=== PATIENT | female | born 1995 | race Caucasian/White ===

== ENCOUNTER → 2023-01-20 | Outpatient (CLI) | payer OTHER | LOC: DIA.ED 07:47 | DX: O24.419 Gestational diabetes mellitus in pregnancy, unspecified control (principal) | CPT/HCPCS: G0108 ==

== ENCOUNTER → 2023-01-24 | Outpatient (CLI) | payer OTHER | LOC: DIA.ED 07:54 | DX: O24.419 Gestational diabetes mellitus in pregnancy, unspecified control (principal) ==

== ENCOUNTER 2023-03-22 00:02 | Inpatient (IN) | payer OTHER ==
[2023-03-22] VITALS (40 sets, daily range): BP systolic 89–155; BP diastolic 50–90; PULSE 71–137; TEMP 97.8–99.5
[~2023-03-22] VITALS: Ht 157.5 cm; Wt 104.1 kg
--- NOTE | 2023-03-22 00:05 | NUR ---
ambulatory to unit for assessment of ?SROM, accompanied by spouse. Pt reports "My water broke" Pt states "I really feel like I have to poop" SVE /-3, +amniotrace, pooling clear fluid. Up to bathroom.
--- NOTE | 2023-03-22 00:40 | NUR ---
pt on monitor. Pt anxious, shaking. states "i'm really scared" Discussed fears concerns. Discussed Labor routine, things to expect, things that would happen if she had a C-sect. supportive @ bedside.
--- NOTE | 2023-03-22 01:30 | NUR ---
IV started, up to bathroom. Continues anxious, tense.
[2023-03-22 01:48] LABS: BASO # 0.1 K/mm3 (0.0-0.2); BASO % 0.4 % (0.0-2.0); EOS # 0.1 K/mm3 (0.0-0.7); EOS % 0.8 % (0.0-4.0); GRAN # 9.9 K/mm3 (1.4-6.5); GRAN % 72.3 % (42.2-75.2); HEMATOCRIT 37.9 % (37.0-47.0); HEMOGLOBIN 12.8 g/dl (12.5-16.0); LYMPH # 2.6 K/mm3 (1.2-3.4); LYMPH % 18.7 % (20.0-51.0); MEAN CELL VOLUME 85 fl (80.0-100.0); MEAN CORPUSCULAR HEMOGLOBIN 29 pg (27-31); MEAN CORPUSCULAR HGB CONC 34 g/dl (33.0-37.0); MEAN PLATELET VOLUME 10.5 fl (7.4-10.4); MONO % 6.9 % (1.7-9.3); PLATELET COUNT 218 K/mm3 (130-400); RED BLOOD COUNT 4.46 M/mm3 (4.10-5.30); REDCELL DISTRIBUTION WIDTH-CV 14.1 % (11.5-14.5)
--- NOTE | 2023-03-22 02:15 | NUR ---
Pt continues tense/ anxious Stating"I just don't like how I feel. I'm nauseated." Dr Mantilla on unit. Diffiult to maintain FHR tracing r/t obesity, pt ansiety and frequest changing positions. This RN @ bedside adjusting monitors as pt changes positions. Encourage pt to attempt to stay still for FHR monitoring.
--- NOTE | 2023-03-22 02:25 | NUR ---
Pt changing position frequently, shaking with anxiety. Difficult to maintain FHR tracing. This RN at pt's bedside, attempting to maintain tracing and provide emotional support.
--- NOTE | 2023-03-22 03:15 | NUR ---
Continues anxious/tense moving positions frequently. Difficult to maintain FHR tracing r/t obesity and frequent position changes.
--- NOTE | 2023-03-22 03:20 | NUR ---
up to birthing cheryl, FHT's obtained
--- NOTE | 2023-03-22 03:50 | NUR ---
up to bathroom.
--- NOTE | 2023-03-22 04:00 | NUR ---
difficult to maintain FHR tracing. Dr Hobbs on unit, 0411 Dr HOBBS on unit, FSE placed.
--- NOTE | 2023-03-22 04:15 | NUR ---
up to birthing ball. 0430 Crying, shaking, on birthing ball. Epidural offered. PT crying, anxious "I'm scared. Is it too soon. I'm afraid I'll panic worse if i can't feel or move my legs" Reviewed epidural, side effects, how they are managed. Pt agrees to epidural. 0432 Anesthesia notified of request for epidural. Lr to bolus rate.
--- NOTE | 2023-03-22 04:41 | NUR ---
Back to bed for epid placement. Pt tense anxioux crying. Sits on edge of bed.see amesthesia record.
--- NOTE | 2023-03-22 05:10 | NUR ---
BP 89/52. lr TO BOLUS, EPHEDRINE 10mg IV push, pt continues anxious now stating "I don't feel very well, nauseated"
--- NOTE | 2023-03-22 05:20 | NUR ---
Pt in high fowlers , states "I feel better in this position" BP 118/61. FHT's 170's. 0526 After much encouragement, pt agrees to HOB down to 45 degrees.
--- NOTE | 2023-03-22 05:30 | NUR ---
Pt staring to relzx. States "I;m rally upset right now because my Mom isn't here.
--- NOTE | 2023-03-22 05:50 | NUR ---
Pt more relaxed states "I'm really upset because my Mom isn't here." Emotional support provided. To LL with peanut ball. Encouraged pt to close her eyes and rest. Lights turned down.
--- NOTE | 2023-03-22 06:00 | NUR ---
Pt resting with eyes closed. Monitor not tracing contractions. This RN palpates ctx from [id number]. FHT's with deceleration to 130with peak of palpated contraction, returns to baseline by palpated end of contraction. RN leaves room.
--- NOTE | 2023-03-22 06:05 | NUR ---
To supine for tinoco placement. PT relaxed and social, tolerates catheter placement well. Had instructed pt about tinoco placement after epidural placement. SVE as noted. To RL with peanut ball. 0616 FHT's with early deceleration to 110's. pt becomes anxious and nauseated. 0625 Ephedrine 10mg IV push. Bedside report and introductions with oncoming RN.
--- NOTE | 2023-03-22 06:25 | NUR ---
ePHEDRINE 10MG iv PUSH.
--- NOTE | 2023-03-22 11:45 | NUR ---
PATIENT CALLS OUT WITH COMPLAINTS OF PRESSURE. SVE 10/100/0 AT 1040. PRACTICE PUSH WITH PATIENT REVEALED . PATIENT INSTRUCTED TO STOP PUSHING AND TO BREATH THROUGH THE CTX. DR HOBBS CALLED AND UPDATED AT 1042. DR HOBBS HERE AT 1110 AND PUSHING WITH PATIENT AT 1115. PATIENT PUSHING WELL WITH BABY DESCENT. BABY DELIVERED AT 1121. A LIVE FEMALE . CORD WAS CUT AT 1125 BY FOB. PLACENTA DELIVERED AT 1131 SPONTANESOULY. 1ST DEGREE PERINEAL AND LEFT LABIAL REPARIED. PATIENT TOLERATED WELL. PISTOCIN BOLUS INFUSING AFTER DELIVERY OF PLACENTA AND BLEEDING WNL. EBL OF [address] HOBBS. PATIENT CLEANED UP AND RECOVERY START TIME 1145. WILL CONTINUE TO MONITOR.
--- NOTE | 2023-03-22 13:47 | NUR ---
RECOVERY COMPLETE BUT PATIENTS RIGHT LEG EXTREMELY NUMB AND PT CANNOT MOVE IT. WILL LET LEG REST AND WILL CONTINUE TO MONITOR.
--- NOTE | 2023-03-22 18:35 | NUR ---
Report recieved. Resting in bed. Moving right leg up and down in the bed. Able to hold the leg off the bed. Reports that she is unable to ambulate due to her leg feeling "tingly." Updated whiteboard and reviewed POC.
--- NOTE | 2023-03-22 19:25 | NUR ---
Stood at bedside while holding onto a nurses arm. Able to lift and move right leg. States it is too numb to ambulate. Fresh ice pack to perineum and tucks pads in place. VS and assessment completed. Able to position herself in bed.
--- NOTE | 2023-03-22 21:30 | NUR ---
Stood at bedside, immediately upon standing patient stated, "this doesn't feel right" and sat back down on the bed. Requested to be "wheeled" to the restroom to void. Able to lift both feet and step up onto [employer]. Was taken to the restroom where she voided 250mls. States she is unable to lift right foot to remove under garment to replace with a clean on. This nurse lifted her right leg and put on a clean pair of underwear, fresh ice pack and tucks pads. Able to then place both feet, unassisted, onto [employer] Steady. Was taken back to bed. Repositioned back in bed without assistance. Encouraged to continue to move the right leg to encourage circulation.
--- NOTE | 2023-03-22 23:30 | NUR ---
Going to breastfeed. Requests to hold motrin and tylenol until after she breastfeeds.
[2023-03-23 02:00] VITALS: BP 115/68; PULSE 89; TEMP 98
--- NOTE | 2023-03-23 05:05 | NUR ---
Called for assistance to restroom at this time. Reported her "feeling is back down to my foot but I cannot feel the bottom of my foot." Stood at the side of the bed well. Able to take steps in place next to bed then states, "this freaks me out. I can't do this." Used Enedina Medina to go to the restroom.
[2023-03-23 08:30] VITALS: BP 106/73; PULSE 89; TEMP 98
[2023-03-23] MEDS ORDERED: IBU600 MG PO (09:15)
--- NOTE | 2023-03-23 09:45 | NUR ---
Initial visit: Parents thanked Whiskey Proof Reader for offering congratulations and God's blessings for the of their daughter. Whiskey Proof Reader thanked family for choosing [facility].
--- NOTE | 2023-03-23 10:30 | NUR ---
1030 - Patient reports decreased feeling in right foot overnight and continues to report this feeling this morning. Patient ambulates with walker and RN to bathroom, voids and performs pericare. Patient steady with walker. 1040 - Patient walks 1 lap around unit with this RN using walker intermittently. Patient continues using walker in room. Care ongoing.
[2023-03-23 12:26] VITALS: BP 108/88; PULSE 88; TEMP 97.9
[2023-03-23 16:33] VITALS: BP 109/55; PULSE 72; TEMP 98.6
[2023-03-23 20:32] VITALS: BP 114/52; PULSE 67; TEMP 98.2
[2023-03-24 06:45] VITALS: BP 112/78; PULSE 70; TEMP 97.5
== END 2023-03-24 11:25 | disposition home or self-care (01) | DRG 807 ==
LOC: LDRO 00:02 → OB 00:58 → LDR 00:58 → OB 13:30
PROVIDERS: ADMIT Obstetrics & Gynecology
PROC: 10E0XZZ Delivery of Products of Conception, External Approach (ICD-10-PCS; principal; 2023-03-22)
PROC: 0HQ9XZZ Repair Perineum Skin, External Approach (ICD-10-PCS; 2023-03-22)
PROC: 0UQMXZZ Repair Vulva, External Approach (ICD-10-PCS; 2023-03-22)
DX: O24.420 Gestational diabetes mellitus in childbirth, diet controlled (principal); Z37.0 Single live birth; Z3A.38 38 weeks gestation of pregnancy; O99.344 Other mental disorders complicating childbirth; F41.9 Anxiety disorder, unspecified; O70.0 First degree perineal laceration during delivery; O99.892 Other specified diseases and conditions complicating childbirth; Q99.2 Fragile X chromosome; O76 Abnormality in fetal heart rate and rhythm complicating labor and delivery; R20.0 Anesthesia of skin; O90.89 Other complications of the puerperium, not elsewhere classified
CPT/HCPCS: J2590; J2795; J7120